=== PATIENT | female | born 1965 | race Caucasian/White ===

== ENCOUNTER 2019-02-01 20:13 | Emergency (ER) | payer BC ==
[2019-02-01 20:30] VITALS: TEMP 98.1; BMI 28.5
--- NOTE | 2019-02-01 20:37 | PDOC ---
Attending Attestation - Resident Resident Name: Keith Gentile - ED Attending Attestation I have performed the following: I have examined & evaluated the patient, The case was reviewed & discussed with the resident, I agree w/resident's findings & plan - HPI HPI: 02/02/19 06:01 Pt comes with CP; she is ansious because she has a fam hx of heart disease and she thinks she is having something bad happending to her heart. However, she has normal vitals, she is complaint with meds, she is not overweight and she has normal BP and cholesterol, she is not a smoker and she has a good diet. - Physicial Exam PE: 02/02/19 06:02 Normal exam; afebrile VSS heart normal lungs clear. Neuro exam normal Pt has decreased hearing which is a chronic issue. Abd soft NT ND - Medical Decision Making 02/02/19 06:03 Home with family; all labs normal. Pt refusing CXR as she feels fine and she wants to go home. Heart Score/ECG Review - ECG Intrepretation Rhythm: Regular Rhythm - Vanderbilt Vanderbilt: Normal - P and RI Delta Wave(s) Present: No WPW: No - QRS Poor R Wave Progression: No Q Wave Present: No - ST and T Early Repolarization: No Non Specific ST-T Wave changes: No Flattened T Waves: No - ECG Impressions Normal ECG: Yes Bradycardia: No Torsades saurav Pointes: No
--- NOTE | 2019-02-01 20:49 | PDOC ---
History of Present Illness - General Chief Complaint: Shortness of Breath Stated Complaint: CHEST PAINS Time Seen by Provider: 02/01/19 20:35 History Source: Patient Exam Limitations: No Limitations - History of Present Illness Initial Comments: 02/01/19 20:49 PCP: Dr. Mann HPI: 53yo F PMH HLD, hypothyroid, presenting with SOB and pleuritic CP for 1 hour. Playing with grandchildren, chest pain, also happened 1 month ago resolved spontaneously. Chest pain is severe, sharp, central, nonradating, pleuritic, and worse with movement without alleviating factors. Extremities have felt subjectively weak / numb - easily ambulating and using her arms. Noncompliant with her cholesterol medication. Worried due to heart disease in both parents. 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 Denies LH, syncope, palpitations, trauma, LOC, travel, recent immobilizations, estrogen containing medications, smoking, DVT, or cancer. All: NKDA Meds: synthroid PMH: as above PSH: denies SHx: Marijuana, no cigarettes, no ETOH, no illicts Past History - Travel Traveled outside of the country in the last 30 days: No Close contact w/someone who was outside of country & ill: No - Past Medical History Allergies/Adverse Reactions: Allergies Allergy/AdvReac Type Severity Reaction Status Date / Time No Known Allergies Allergy Verified 02/01/19 20:25 Home Medications: Ambulatory Orders Levothyroxine Sodium [Synthroid] 88 mcg PO AM 02/01/19 Simvastatin 5 mg PO HS 02/01/19 Anemia: Yes COPD: No Psychiatric Problems: Yes (Anxiety, Panic Attacks) Thyroid Disease: Yes - Psycho Social/Smoking Cessation Hx Smoking History: Never smoked Hx Alcohol Use: No Drug/Substance Use Hx: Yes ([facility]) Substance Use Type: Marijuana Review of Systems - Review of Systems Able to Perform ROS?: Yes Is the patient limited Vietnamese proficient: Yes Constitutional: No: Chills, Diaphoresis, Fever, Weakness HEENTM: Yes: Blurred Vision, Tearing. No: Eye Pain, Nose Congestion, Throat Pain Respiratory: Yes: Shortness of Breath. No: Cough, Orthopnea, SOB with Exertion , SOB at Rest, Wheezing, Hemoptysis Cardiac (ROS): Yes: Chest Pain (sharp, midline). No: Edema, Irregular Heart Rate, Lightheadedness, Palpitations, Chest Tightness ABD/GI: No: Constipated, Diarrhea, Nausea, Vomiting : No: Burning, Dysuria, Frequency, Pain Musculoskeletal: No: Back Pain, Joint Pain, Muscle Pain, Muscle Weakness, Neck Pain Integumentary: No: Bruising, Flushing, Pruritus, Rash Neurological: Yes: Weakness (subjective). No: Headache, Numbness, Tingling Endocrine: Yes: See HPI. No: Symptoms Reported Hematologic/Lymphatic: No: Symptoms Reported, Anemia, Easy Bleeding, Easy Bruising All Other Systems: Reviewed and Negative *Physical Exam - Vital Signs Last Vital Signs Temp Pulse Resp BP Pulse Ox 98.1 F 80 20 140/78 100 02/01/19 20:23 02/01/19 20:23 02/01/19 20:23 02/01/19 20:23 02/01/19 20:23 - Physical Exam Comments: 02/01/19 20:38 AFVSS, mildly hypertensive WDWN, appears stated age, appears anxious, NAD, laying in bed EOMI, PERRLA RRR, nl s1s2, no murmurs / rubs / gallops, TTP without crepitus, no carotid bruits CTABL, normal WOB, no wheezes / rales / rhonchi, speaking full sentences with ease Soft, nondistended, nontender 2+ radial and PT pulses WWP, no clubbing / cyanosis / edema Alert and oriented x3, MAEE, 5+ strength throughout, normal sensation throughout , CN2-12 intact Good recall / memory, no aphasia Heart Score/ECG Review - History History: Slightly suspicious - Electrocardiogram EKG: Normal - Age Age: 45-65 - Risk Factors Risk Factors Heart Score: Yes Hx Hypercholesterolemia, Yes Positive family hx of cardiac disease Based on the list above the patient has:: 1-2 risk factors - Troponin Troponin: </= normal limit - Score Heart Score - Total: 2 ED Treatment Course - LABORATORY CBC & Chemistry Diagram: 02/01/19 21:05 02/01/19 21:05 Medical Decision Making - Medical Decision Making 02/01/19 21:25 53yo F PMH HLD, hypothyroid, presenting with SOB and pleuritic CP for 1 hour. Pain reproducible with palpation. DDX: r/o ACS, PTX, costochondritis, PE, PNA, Dissection. HEART Score presumed 2 before troponin. -EKG with Normal rate, rhythm, axis, normal morphologies, no signs of cardiac ischemia / ST changes, no voltage variability -CBC, CMP, Cardiac Profile -CXR -Benadryl, ASA, Motrin, Robaxin, NS 02/01/19 21:47 -No leukocytosis or anemia 02/01/19 22:32 -No electrolyte abnormalities, mildly elevated alk phos, elevated CK, normal troponin -Normal CXR without effusion, infiltrate, pneumothorax, normal cardiac silhouette, no acute bony pathology, normal mediastinal width -Ordering K and Mg -RUQ US given elevation in alk phos -CK-MB wnl Dispo: Likely Discharge 02/01/19 23:08 -Patient with improved headache and no chest pain, with no visual complaints at this time. AFVSS, breathing comfortably on room air. -Patient does not wish to undergo ultrasound at this time as she is not experiencing any abdominal pain. She is aware of the elevation in alk phos and agrees to seek care if she develops any abdominal pain. Dispo: Home with PCP follow up Discharge - Discharge Information Problems reviewed: Yes Clinical Impression/Diagnosis: Chest pain Qualifiers: Chest pain type: unspecified Qualified Code(s): R07.9 - Chest pain, unspecified Condition: Improved Disposition: HOME - Admission No - Follow up/Referral - Patient Discharge Instructions Patient Printed Discharge Instructions: DI for Atypical Chest Pain Additional Instructions: Please follow up with your primary care doctor, call on Sunday to arrange an appointment early next week for further evaluation. Continue to take OTC pain medication such as Tylenol or Motrin as directed on the label for your pain. Please return to the ED for any new or concerning symptoms including but not limited to: worsening chest pain, associated sweating or difficulty breathing. - Post Discharge Activity
[2019-02-01] MEDS ORDERED: IBUPROFEN 600 MG TABLET (FP) PO ONE ×2 (21:07→21:29)
[2019-02-01] MEDS ORDERED: ASPIRIN 81 MG CHEWABLE TABLETS PO ONE (21:07)
[2019-02-01] MEDS ORDERED: METHOCARBAMOL 500 MG TABLET PO ONE (21:08)
[2019-02-01] MEDS ORDERED: SODIUM CHLORIDE 0.9% 500 ML INFUS.BAG IV ONE (21:10)
[2019-02-01] MEDS ORDERED: METHOCARBAMOL 500 MG TABLET ONE (21:28)
[2019-02-01] MEDS ORDERED: ASPIRIN 81 MG CHEWABLE TABLETS ONE (21:28)
[2019-02-01 21:29] LABS: BASO % 0.5 % (0-2.0); EOS % 1.4 % (0-4.5); HEMATOCRIT 38.9 % (32.4-45.2); HEMOGLOBIN 12.7 GM/dL (10.7-15.3); LYMPH % 45.2 % (8-40); MCH 29.9 pg (25.7-33.7); MCHC 32.7 g/dl (32.0-36.0); MEAN CELL VOLUME 91.4 fl (80-96); MEAN PLT VOLUME 9.1 fl (7.5-11.1); MONO % 5.6 % (3.8-10.2); NEUT % 47.3 % (42.8-82.8); PLATELET COUNT 251 K/MM3 (134-434); RBC 4.26 M/mm3 (3.60-5.2); WHITE BLOOD COUNT 6.8 K/mm3 (4.0-10.0)
[2019-02-01 21:42] VITALS: BP 133/91; PULSE 60
[2019-02-01 21:56] LABS: ALBUMIN 3.9 g/dl (3.4-5.0); ALK PHOS 137 U/L (45-117); ANION GAP 10 MMOL/L (8-16); BILIRUBIN,TOTAL 0.5 mg/dL (0.2-1); BLOOD UREA NITROGEN 13.3 mg/dL (7-18); CALCIUM 9.1 mg/dL (8.5-10.1); CHLORIDE 112 mmol/L (98-107); CO2 22 mmol/L (21-32); CREATININE 0.8 mg/dL (0.55-1.3); GLUCOSE,RANDOM 89 mg/dL (74-106); POTASSIUM 3.4 mmol/L (3.5-5.1); SGOT/AST 22 U/L (15-37); SGPT/ALT 22 U/L (13-61); SODIUM 143 mmol/L (136-145); TOT PROT 7.4 g/dl (6.4-8.2)
[2019-02-01] MEDS ORDERED: MAGNESIUM SULF 50% (8.12 MEQ/2 ML-1 GM VIAL) IVPB ONE (22:32)
[2019-02-01] MEDS ORDERED: POTASSIUM CHLORIDE TABS 20 MEQ TABLET.ER (FP) PO ONE ×2 (22:32→22:57)
[2019-02-01] MEDS ORDERED: MAGNESIUM 1GM/D5W - 2 GM/200 ML IVPB IVPB ONE (22:56)
--- NOTE | 2019-02-02 10:40 | EKG ---
Test Reason : Blood Pressure : / mmHG Vent. Rate : 070 BPM Atrial Rate : 070 BPM P-R Int : 146 ms QRS Dur : 070 ms QT Int : 394 ms P-R-T Axes : 046 058 029 degrees QTc Int : 425 ms NORMAL SINUS RHYTHM NONSPECIFIC T WAVE ABNORMALITY ABNORMAL ECG NO PREVIOUS ECGS AVAILABLE Confirmed by MP MURPHY, ALONSO ([id number]) on 02/02/2019 10:40:28 AM Referred By: Confirmed By:ALONSO GRESHAM MD
== END 2019-02-01 23:34 | disposition home or self-care (01) ==
LOC: JER 20:13
PROC: 3E033GC Introduction of Other Therapeutic Substance into Peripheral Vein, Percutaneous Approach (ICD-10-PCS; principal; 2019-02-01)
PROC: 3E033GC Introduction of Other Therapeutic Substance into Peripheral Vein, Percutaneous Approach (ICD-10-PCS; 2019-02-01)
DX: E03.9 Hypothyroidism, unspecified (principal); R07.9 Chest pain, unspecified; E78.5 Hyperlipidemia, unspecified; D64.9 Anemia, unspecified; F41.9 Anxiety disorder, unspecified; F41.0 Panic disorder [episodic paroxysmal anxiety]
CPT/HCPCS: 36415; 71046-TC-FY; 80053; 82550; 82553; 84484; 85025; 93005; 93010; 99283-25

== ENCOUNTER 2020-04-30 12:34 | Emergency (ER) | payer BC ==
[2020-04-30 12:49] VITALS: BMI 23.1
[2020-04-30 13:42] LABS: BASO % 0.5 % (0-2.0); EOS % 0.4 % (0-4.5); HEMOGLOBIN 12.9 GM/dL (10.7-15.3); LYMPH % 24.6 % (8-40); MCH 31.6 pg (25.7-33.7); MCHC 33.2 g/dl (32.0-36.0); MEAN CELL VOLUME 95.3 fl (80-96); MONO % 4.7 % (3.8-10.2); NEUT % 69.8 % (42.8-82.8); PLATELET COUNT 192 K/MM3 (134-434); RBC 4.09 M/mm3 (3.60-5.2); WHITE BLOOD COUNT 6.9 K/mm3 (4.0-10.0)
[2020-04-30 13:58] LABS: POTASSIUM 3.6 mmol/L (3.5-5.1)
[2020-04-30 14:00] LABS: ALBUMIN 4.5 g/dl (3.4-5.0); CALCIUM 9.5 mg/dL (8.5-10.1)
[2020-04-30 14:01] LABS: BLOOD UREA NITROGEN 9.6 mg/dL (7-18)
[2020-04-30 14:05] LABS: BILIRUBIN,TOTAL 1.3 mg/dL (0.2-1)
[2020-04-30 16:29] VITALS: BP 124/85; PULSE 63; TEMP 97.9
== END 2020-04-30 17:49 | disposition home or self-care (01) ==
LOC: JER 12:34
DX: M54.5 Low back pain (principal); E03.9 Hypothyroidism, unspecified
CPT/HCPCS: 36415; 72100-TC-FY; 80053; 84439; 84443; 85025; 99284-25; C9803; U0003

== ENCOUNTER 2023-05-02 12:40 | Emergency (ER) | payer BC ==
[2023-05-02 13:10] VITALS: BP 116/66; PULSE 65; RESP 18; TEMP 98; BMI 25.6
[2023-05-02] MEDS ORDERED: KETOROLAC TROMETHAMINE 30 MG/1 ML VIAL IM ONE (15:13)
[2023-05-02] MEDS ORDERED: LIDOCAINE 5% TOPICAL PATCH TP ONE (15:13)
[2023-05-02] MEDS ORDERED: diazePAM 5 MG TABLET PO ONE (15:13)
[2023-05-02] MEDS ORDERED: LIDOCAINE 4% PATCH TP ONE ×2 (15:24→15:26)
[2023-05-02] MEDS ORDERED: KETOROLAC TROMETHAMINE 30 MG/1 ML VIAL ONE (15:25)
[2023-05-02] MEDS ORDERED: diazePAM 5 MG TABLET ONE (15:25)
[2023-05-02] MEDS ORDERED: LIDOCAINE PATCH REMOVAL MC ONE ×2 (22:00)
== END 2023-05-02 17:26 | disposition home or self-care (01) ==
LOC: JERFT 12:40
PROC: 3E0233Z Introduction of Anti-inflammatory into Muscle, Percutaneous Approach (ICD-10-PCS; principal; 2023-05-02)
DX: M54.50 Low back pain, unspecified (principal)
CPT/HCPCS: 72131-TC; 99284-25